=== PATIENT | female | born 1940 | race American Indian/Alaskan Native ===

== ENCOUNTER 2018-05-25 15:25 | Emergency (ER) | payer MEDICARE ==
[2018-05-25 15:59] VITALS: BP 156/69
[2018-05-25 16:27] LABS: Hematocrit 36.2 % (30.3-42.9); Hemoglobin 11.6 gm/dl (10.1-14.3); Mean Corpuscular HGB Conc 32 % (30-34); Mean Corpuscular Hemoglobin 27 pg (28-32); Mean Corpuscular Volume 83 fl (79-97); Platelet Count 457 K/mm3 (140-440); Red Blood Count 4.37 M/mm3 (3.65-5.03); Red Cell Distribution Width 17.3 % (13.2-15.2)
[2018-05-25 16:49] LABS: Albumin 3.1 g/dL (3.9-5); BUN/Creatinine Ratio 24; Blood Urea Nitrogen 26 mg/dL (7-17); Calcium 9.3 mg/dL (8.4-10.2); Hemolysis Index 72
[2018-05-25 16:53] LABS: Alanine Aminotransferase < 5 units/L (7-56)
== END 2018-05-25 22:51 | disposition left against medical advice (07) ==
LOC: ED 15:25
DX: M25.562 Pain in left knee (principal); Z53.21 Procedure and treatment not carried out due to patient leaving prior to being seen by health care provider
CPT/HCPCS: 36415; 80053; 85027